=== PATIENT | female | born 1950 | race Caucasian/White ===

== ENCOUNTER 2018-02-23 18:05 | Observation (INO) | payer MEDICARE, MEDICAID ==
[2018-02-23 19:22] LABS: CKMB 0.6 ng/mL (0-6.6); Troponin I Less than 0.010 ng/mL (< 0.028)
[2018-02-23] MEDS ORDERED: Ondansetron HCl/PF 4 MG/2 ML Vial IVP PRN (21:55)
[2018-02-23] MEDS ORDERED: Aspirin 325 MG TAB PO SCH (22:15)
[2018-02-23] MEDS: Acetaminophen 325 MG TAB PO PRN (22:21)
[2018-02-23 22:41] LABS: Troponin I Less than 0.010 ng/mL (< 0.028)
[2018-02-23 22:59] VITALS: BMI 26.5
--- NOTE | 2018-02-24 02:18 | HP ---
PRIMARY CARE PHYSICIAN: [facility] call. CODE STATUS: FULL CODE. TIME OF EVALUATION: 9:00 p.m. CHIEF COMPLAINT: Chest pain. HISTORY OF PRESENT ILLNESS: This is a 67 years old female patient with past medical history of GERD and Brock's esophagus, came to the hospital after having epigastric pain with sudden radiation to t he chest, no clear triggers, no alleviating factors, pain was reported as being on and off . REVIEW OF SYSTEMS: Constitutional: No fever or chills or generalized weakness. Respiratory: No co ugh, sputum production or shortness of breath. Cardiovascular: Chest pain, no palpitation. Gastroi ntestinal: Epigastric pain, nausea. No vomiting, diarrhea or abdominal pain. FOOD EXPEDITOR: No dizziness, h eadache or feeling lightheaded. Genitourinary: No burning with urination. Extremities: No leg swe lling. All other systems were reviewed and negative except for the findings mentioned above. PAST MEDICAL HISTORY: Positive for Brock's esophagus. PAST SURGICAL HISTORY: No surgical history. PSYCHIATRIC HISTORY: No psych history. SOCIAL HISTORY: The patient lives with her , patient uses methamphetamines, last time used 2 to 3 weeks ago. No smoking history. KNOWN ALLERGIES: HYDROCODONE. REPORTED MEDICATIONS: Omeprazole. PHYSICAL EXAMINATION: VITAL SIGNS: On presentation, blood pressure 95/61 with heart rate 79, respiratory rate was 18, temp erature 98.9, pain 2/10, oxygen saturation 98 on room air. GENERAL APPEARANCE: The patient is alert, oriented, not in any acute distress. HEENT: Eyes: Normal conjunctiva, moist oral mucosa, anicteric. NECK: No JVD. RESPIRATORY: Bilateral air entry. No rales, no wheezing. Symmetric expansion. CARDIOVASCULAR: Normal rate, regular rhythm. No murmurs, no gallop, no edema. ABDOMEN: Soft, normal bowel sounds. MUSCULOSKELETAL: Baseline range of motion and strength. No tenderness. SKIN: Warm and intact. No pallor, no rash, no redness. Peripheral pulses are present. Capillary r efill seems to be intact. NEUROLOGIC: Baseline sensory. No evidence of any new focal weakness. Baseline speech. Cranial ner ves seem to be intact. PSYCHIATRIC: The patient is in good mood, no anxiety, oriented, optimal judgement. EKG was reviewed. The patient has normal sinus rhythm with a rate of 75, WI 128, QRS 74, QT correcte d 415, no evidence of any acute ischemic event. Hematology: White count 11.3, hemoglobin 12.5, MCV 82.3, platelet count 302. Coagulation: D-dimer is 0.5. Chemistry: Sodium 138, potassium 3.9, chlo ride 101, carbon dioxide 20, anion gap 13, BUN 19, creatinine 0.8, GFR 64, glucose 116, calcium 10.8. LFTs were negative. CK 23. Chest CTA was done. The patient has no evidence of pulmonary embolism . Chest x-ray was done and showed no acute intrathoracic disease. ASSESSMENT AND PLAN: The patient will be placed in the hospital with the following medical problems. 1. Chest pain, rule out acute coronary syndrome. The patient has normal EKG, troponins are negative . We will monitor on tele. We will do stress test in the morning. Risks, benefits have been discus sed with the patient, she verbalized understanding, is agreeable to take stress test in the morning. 2. Brock's esophagus. Reconcile home medications. We will adjust the treatment as needed. 3. Deep venous thrombosis prophylaxis. 4. History of methamphetamines. Recommendation is to use drugs.
[2018-02-24 05:16] LABS: #Basophils 0.1 thou/uL (0.0-0.2); #Eosinphils 0.3 thou/uL (0.0-0.7); #Lymphocytes 2.6 thou/uL (1.20-3.40); #Monocytes 0.7 thou/uL (0.11-0.59); #Neutrophils 5.9 thou/uL (1.40-6.50); %Basophils 0.7 % (0.0-1.0); %Eosinophils 2.8 % (0.0-10.0); %Lymphocytes 27.5 % (21.0-51.0); Hemoglobin 11.3 g/dL (12.0-16.0); Mean Corpuscular HGB CONC 33.9 g/dL (32.0-36.0); Mean Corpuscular Hemoglobin 28.5 pg (27.0-31.0); Mean Corpuscular Volume 84.3 fL (78.0-98.0); Mean Platelet Volume 8.5 fL (7.4-10.4); Platelet Count 279 thou/uL (130-400); RBC Distribution Width 16.2 % (11.5-14.5); Red Blood Cell (RBC) Count 3.95 mill/uL (4.20-5.40); White Blood Cell (WBC) Count 9.5 thou/uL (4.8-10.8)
[2018-02-24 05:35] LABS: Anion Gap 10 mmol/L (10-20); BUN (Urea Nitrogen) 16 mg/dL (9.8-20.1); Calc. Creatinine Clearance 61 mL/min (70-130); Calcium 9.3 mg/dL (7.8-10.44); Carbon Dioxide 25 mmol/L (23-31); Chloride 104 mmol/L (98-107); Estimated GFR-MDRD 66; Glucose 100 mg/dL (80-115); Potassium 4.2 mmol/L (3.5-5.1); Sodium 135 mmol/L (136-145)
[2018-02-24] MEDS ORDERED: Aspirin 325 MG TAB PO SCH (08:00)
[2018-02-24] MEDS: Acetaminophen 325 MG TAB PO PRN (08:37)
[2018-02-24] MEDS ORDERED: Prevnar 13-Val Conj/PF 0.5 ML SYRINGE IM ONE (09:00)
[2018-02-24] MEDS ORDERED: Enoxaparin Sodium 40 MG/0.4 ML SYRINGE SC SCH (09:00)
[2018-02-24] MEDS ORDERED: ADENOSINE 60 MG/20 ML VIAL ONE (10:52)
[2018-02-24 14:42] VITALS: BP 118/59; TEMP 98
--- NOTE | 2018-02-24 16:04 | NM ---
CARDIAC SPECT: HISTORY: A 67-year-old female with chest pain. TECHNIQUE: A myocardial perfusion scan was performed using the single-isotope 1-day protocol with Technetium 99m sestamibi. Eleven mCi were injected intravenously for the rest exam followed by 27 mCi for the stre ss study. Pharmacologic stress with adenosine was monitored and interpreted by Dr. Jeffers. FINDINGS: Homogeneous tracer distribution is seen in the myocardial segments on stress and rest images without fixed or reversible defects. . GATED SPECT LVEF: 69%. WALL MOTION EXAM: Normal. IMPRESSION: Normal myocardial perfusion scan. POS: CHANDRIKA
--- NOTE | 2018-02-24 23:28 | DIS ---
DATE OF ADMISSION: 02/23/2018 DATE OF DISCHARGE: 02/24/2018 DISCHARGE DIAGNOSES: 1. Chest pain. 2. Hiatal hernia. 3. Gastroesophageal reflux disease. HOSPITAL COURSE: The patient is a very pleasant 67-year-old female who [facility] with significant chest pain. The patient's troponins were trended. Troponin x3 were negative . The patient's EKG indicated normal sinus rhythm. At this time, she also had a CTA which indicated a moderate size hiatal hernia, otherwise no pulmonary emboli. The patient underwent a stress test w hich was negative. The patient will be discharged home. She was asked to follow up with her primary care doctor, which she has an appointment later on in February and also I have provided patient with the name of a surgeon to follow up when she in regards to her hernia. I did specifically tell her th at if her pain intensity worsen, she would want to come back to the hospital for further evaluation; however, currently no signs of strangulation was noted. The patient also was told to take Prilosec t wice a day and follow up with her primary. Her home medication will be Prilosec 20 mg b.i.d. PHYSICAL EXAMINATION: VITAL SIGNS: Temperature 98.0, pulse 72, respirations 16, O2 sats 90% on room air, blood pressure 11 8/59. GENERAL: She is awake, alert, oriented x3, does not appear in any distress. CARDIOVASCULAR: S1, S2 present. No murmurs, rubs or gallops. ABDOMEN: Soft, bowel sounds present x2. Mild epigastric pain upon palpation.
== END 2018-02-24 17:49 | disposition home or self-care (01) ==
LOC: ERS 18:05 → 2SW 21:01
PROVIDERS: ADMIT Hospitalist; ATTEND Hospitalist
DX: R07.9 Chest pain, unspecified (principal); K21.9 Gastro-esophageal reflux disease without esophagitis; K44.9 Diaphragmatic hernia without obstruction or gangrene; K22.70 Barrett's esophagus without dysplasia; Z79.899 Other long term (current) drug therapy; Z88.5 Allergy status to narcotic agent
CPT/HCPCS: 78452; 80048; 82553; 84484; 85025; 93017; 94760; 96372; 99285; A9500; G0378; 36415; 90471; 90670; G0009; J0153; J1650